=== PATIENT | female | born 1970 | race Two or more races ===

== ENCOUNTER 2018-12-26 17:00 | Emergency (ER) | payer OTHER ==
[2018-12-26] MEDS ORDERED: IBUPROFEN 400 MG TABLET PO ONE (18:20)
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
[2018-12-26 19:51] VITALS: BP 95/68
== END 2018-12-26 19:59 | disposition home or self-care (01) ==
LOC: ER 17:00
DX: S16.1XXA Strain of muscle, fascia and tendon at neck level, initial encounter (principal); M54.6 Pain in thoracic spine; M54.2 Cervicalgia; M54.5 Low back pain; V89.2XXA Person injured in unspecified motor-vehicle accident, traffic, initial encounter
CPT/HCPCS: 99283; 72040; 72100; 72070; J3490